=== PATIENT | female | born 1995 | race Caucasian/White ===

== ENCOUNTER 2018-07-27 08:11 | Inpatient (IN) | payer MEDICAID, OTHER ==
[2018-07-27] MEDS: SODIUM CHLORIDE 0.9% FLUSH 10 ML SOL IV SCH ×2 (10:45→21:02)
[2018-07-27 11:00] LABS: BASOPHILS % (AUTO) 1 % (0-3); EOSINOPHILS % (AUTO) 0 % (0-9); HEMATOCRIT 37 % (35-47); HEMOGLOBIN 12.4 gm/dl (12.0-15.5); LYMPHOCYTES % (AUTO) 16.5 % (10-50); MEAN CORPUSCULAR HEMOGLOBIN 29.3 pg (27.0-32.0); MEAN CORPUSCULAR HGB CONC 33.2 gm/dl (32.0-36.0); MEAN CORPUSCULAR VOLUME 88 fL (81-99); MONOCYTES % (AUTO) 7.3 % (0-12); NEUTROPHILS % (AUTO) 75.2 % (37-80)
[2018-07-27] MEDS ORDERED: FENTANYL 100MCG/2ML SOL IV PRN (11:13)
[2018-07-27] MEDS ORDERED: SODIUM CHLORIDE 0.9% FLUSH 10 ML SOL IV PRN (11:13)
[2018-07-27] MEDS ORDERED: LACTATED RINGERS 1,000 ML IV PRN (11:13)
[2018-07-27] MEDS ORDERED: MEPIVACAINE HCL 1% MPF 30 ML/VIAL SOL INFIL PRN (11:13)
[2018-07-27] MEDS ORDERED: OXYTOCIN 10000 MU/ML SOL IM PRN (11:13)
[2018-07-27] MEDS ORDERED: METHYLERGONOVINE MALEATE 0.2 MG/ML SOL IM PRN (11:13)
[2018-07-27] MEDS ORDERED: CARBOPROST 250 MCG/ML SOL IM PRN (11:13)
[2018-07-27] MEDS: LACTATED RINGERS 1,000 ML IV SCH ×2 (12:42→13:09)
[2018-07-27] MEDS ORDERED: DIPHENHYDRAMINE 50 MG/ML SOL IV PRN (13:02)
[2018-07-27] MEDS ORDERED: NALOXONE HYDROCHLORIDE 0.4 MG/ML SOL IV PRN (13:02)
[2018-07-27] MEDS ORDERED: NALBUPHINE HCL 20 MG/ML SOL IV PRN (13:02)
[2018-07-27] MEDS ORDERED: EPHEDRINE SULFATE 50 MG/ML SOL IV PRN (13:02)
[2018-07-27] MEDS ORDERED: FENTANYL 250 MCG/ 5ML SOL ONE (13:08)
[2018-07-27] MEDS ORDERED: ROPIVACAINE HYDROCHLORIDE 5 MG/ML SOL ONE (13:09)
[2018-07-27] MEDS ORDERED: LACTATED RINGERS 1,000 ML IV SCH (13:15)
[2018-07-27] MEDS ORDERED: TEMAZEPAM 15MG 15 MG CAP PO PRN (15:16)
[2018-07-27] MEDS ORDERED: WITCH HAZEL 1 EA PAD TOP PRN (15:16)
[2018-07-27] MEDS ORDERED: FLEET ENEMA PR PRN (15:16)
[2018-07-27] MEDS ORDERED: BISACODYL 10 MG SUP PR PRN (15:16)
[2018-07-27] MEDS ORDERED: METHYLERGONOVINE MALEATE 0.2 MG TAB PO PRN (15:16)
[2018-07-27] MEDS ORDERED: BENZOCAINE/MENTHOL 1 SPR TOP PRN (15:16)
[2018-07-27] MEDS ORDERED: APAP/HYDROCODONE 1 EACH TABLET PO PRN (15:16)
[2018-07-27] MEDS: DOCUSATE SODIUM 100 MG SGL PO SCH (21:02)
[2018-07-28] MEDS: SODIUM CHLORIDE 0.9% FLUSH 10 ML SOL IV SCH (05:18)
[2018-07-28] MEDS: DOCUSATE SODIUM 100 MG SGL PO SCH ×2 (09:51→20:54)
[2018-07-28 15:34] VITALS: RESP 16; O2SAT 98
[2018-07-28] MEDS: IBUPROFEN 600 MG TAB PO PRN (20:01)
[2018-07-29] MEDS: IBUPROFEN 600 MG TAB PO PRN (02:04)
[2018-07-29] MEDS: DOCUSATE SODIUM 100 MG SGL PO SCH (08:18)
[2018-07-29 08:57] VITALS: BP 112/76; PULSE 68; TEMP 97.2
== END 2018-07-29 10:00 | disposition home or self-care (01) | DRG 560 ==
LOC: OBSVTOIN 08:11 → OB 08:11
PROVIDERS: ADMIT Family Medicine; ATTEND Family Medicine
PROC: 10E0XZZ Delivery of Products of Conception, External Approach (ICD-10-PCS; principal; 2018-07-27)
DX: O80 Encounter for full-term uncomplicated delivery (principal); Z37.0 Single live birth; Z3A.39 39 weeks gestation of pregnancy
CPT/HCPCS: 36415; 59025; 85018; 85025; 94762; J0670; J2590; J2795; J3010; A9270-GY